=== PATIENT | male | born 1995 | race Two or more races ===

== ENCOUNTER 2020-05-05 14:25 | Inpatient (IN) | payer SELFPAY ==
[~2020-05-05] VITALS: Ht 177.8 cm; Wt 54.5 kg
--- NOTE | 2020-05-05 14:30 | NUR ---
REED WALTERS FROM [facility] FOR STEMI. PT USED COCAINE X3 DAYS AGO, AWOKE WITH CP THIS AM. TROP 10. ST ELEVATION IN V2-V6 ON EKG. [address], LABS DRAWING, HEPARIN DRIP IN PLACE FROM [place], 324 MG ASPIRIN GIVEN BY [place]. ATTEMPT TO LOAD REFRIGERATING ENGINEER AT THIS TIME.
[2020-05-05] MEDS ORDERED: HEPARIN 1,000 UNITS/ML, 10ML ONE (14:41)
[2020-05-05] MEDS ORDERED: MIDAZOLAM 1 MG/ML, 5ML ONE (14:41)
[2020-05-05] MEDS ORDERED: LIDOCAINE-MPF 1%, 5ML ONE (14:41)
[2020-05-05] MEDS ORDERED: FENTANYL PF 100 MCG/2ML ONE (14:41)
[2020-05-05] MEDS ORDERED: VERAPAMIL 2.5 MG/ML, 2ML ONE (14:41)
--- NOTE | 2020-05-05 14:47 | NUR ---
CODE CARDIAC PAGED AT 1423. DR. DAN PAGED AT 1423. PAGE RETURNED AT 1425. PT ARRIVED AT 1425. DR DAN AT BEDSIDE AT 1426. PT TO JIG BOX OPERATOR AT 1447.
[2020-05-05 14:48] LABS: BASOPHILS # (AUTO) 0.01 x10^3/uL (0-0.1); BASOPHILS % (AUTO) 0 % (0-1); EOSINOPHILS # (AUTO) 0.01 x10^3/uL (0-0.4); EOSINOPHILS % (AUTO) 0 % (1-7); LYMPHOCYTES # (AUTO) 1.33 x10^3/uL (1-3.4); LYMPHOCYTES % (AUTO) 16 % (22-44); MD NO; MEAN CORPUSCULAR HEMOGLOBIN 30.6 pg (27.5-34.5); MEAN CORPUSCULAR HGB CONC 34.2 g/dL (33.2-36.2); MEAN CORPUSCULAR VOLUME 89.5 fL (81-97); MEAN PLATELET VOLUME 9.4 fL (7.4-10.4); MONOCYTES % (AUTO) 16 % (2-9); NEUTROPHILS # (AUTO) 5.61 x10^3/uL (1.8-6.8); NEUTROPHILS % (AUTO) 68 % (42-75); PLATELET COUNT 174 x10^3/uL (130-400); RED BLOOD COUNT 5.15 x10^6/uL (4.38-5.82); RED CELL DISTRIBUTION WIDTH 13.6 % (9.4-14.8)
[2020-05-05 15:03] LABS: INTERNATIONAL NORMALIZED RATIO 1.05 (0.93-1.1); PROTHROMBIN TIME 11.1 Seconds (9.6-11.5)
--- NOTE | 2020-05-05 15:05 | NUR ---
SUPPLY TECH USED FOR CONSENT AND DISCUSSION OF STEMI FINDINGS AND PROCEDURE WITH DR AGUIRRE AND DR DAN. SUPPLY TECH VIA [employer], [place] NUMBER [id number].
[2020-05-05] MEDS ORDERED: POTASSIUM CHLORIDE 20 MEQ TAB.ER.PRT PO ONE ×2 (15:30→17:00)
[2020-05-05] MEDS ORDERED: SODIUM CHLORIDE 0.9% 1,000 ML IV SCH ×2 (15:46→16:39)
[2020-05-05] MEDS ORDERED: NITROGLYCERIN 0.4 MG/SPRAY SL PRN (16:00)
[2020-05-05] MEDS ORDERED: NITROGLYCERIN 0.4 MG BOTTLE (25 TABS) SL PRN ×2 (16:00→17:00)
[2020-05-05 16:25] VITALS: BP 107/72
[2020-05-05] MEDS ORDERED: hydrALAzine 20 MG/ML, 1ML IVPush PRN (17:00)
[2020-05-05] MEDS: NICOTINE 7 MG/24 HR PATCH.TD24 TD SCH (17:00)
[2020-05-05] MEDS ORDERED: ONDANSETRON 2MG/ML, 2ML IVPush PRN (17:00)
[2020-05-05] MEDS ORDERED: ACETAMINOPHEN 325 MG TABLET PO PRN (17:00)
[2020-05-05] MEDS ORDERED: LABETALOL 5MG/ML, 20ML IVPush PRN (17:00)
[2020-05-05] MEDS: HEPARIN 5,000 UNITS/ML, 1ML SQ SCH (17:44)
[2020-05-05] MEDS: CARVEDILOL 3.125 MG TABLET PO SCH (17:45)
[2020-05-05 18:11] LABS: BASOPHILS # (AUTO) 0.02 x10^3/uL (0-0.1); BASOPHILS % (AUTO) 0 % (0-1); EOSINOPHILS % (AUTO) 0 % (1-7); LYMPHOCYTES # (AUTO) 1.24 x10^3/uL (1-3.4); LYMPHOCYTES % (AUTO) 19 % (22-44); MD NO; MEAN CORPUSCULAR HEMOGLOBIN 30.6 pg (27.5-34.5); MEAN CORPUSCULAR HGB CONC 33.8 g/dL (33.2-36.2); MEAN CORPUSCULAR VOLUME 90.3 fL (81-97); MEAN PLATELET VOLUME 9.2 fL (7.4-10.4); MONOCYTES # (AUTO) 1.17 x10^3/uL (0.2-0.8); MONOCYTES % (AUTO) 18 % (2-9); NEUTROPHILS # (AUTO) 4.03 x10^3/uL (1.8-6.8); NEUTROPHILS % (AUTO) 62 % (42-75); PLATELET COUNT 164 x10^3/uL (130-400); RED CELL DISTRIBUTION WIDTH 13.5 % (9.4-14.8)
[2020-05-05 20:18] VITALS: BP 102/68
[2020-05-05] MEDS: CALCIUM CARBONATE 500 MG TABLET PO SCH (20:31)
[2020-05-05] MEDS: COLCHICINE 0.6 MG CAPSULE PO SCH (20:31)
[2020-05-05] MEDS: LISINOPRIL 5 MG TABLET PO SCH (21:00)
[2020-05-05 21:45] LABS: BARBITURATE SCREEN, URINE Negative (Negative); CANNABINOID SCREEN, URINE Positive (Negative); COCAINE SCREEN, URINE Negative (Negative); METHADONE SCREEN, URINE Negative (Negative); OPIATE SCREEN, URINE Negative (Negative)
[2020-05-05 21:46] LABS: AMPHETAMINE SCREEN, URINE Negative (Negative); BENZODIAZEPINE SCREEN, URINE Positive (Negative)
[2020-05-06 01:19] VITALS: BP 100/68
[2020-05-06] MEDS: HEPARIN 5,000 UNITS/ML, 1ML SQ SCH ×3 (01:43→17:24)
[2020-05-06 05:43] LABS: BASOPHILS # (AUTO) 0.02 x10^3/uL (0-0.1); BASOPHILS % (AUTO) 0 % (0-1); EOSINOPHILS # (AUTO) 0.04 x10^3/uL (0-0.4); EOSINOPHILS % (AUTO) 1 % (1-7); LYMPHOCYTES # (AUTO) 1.52 x10^3/uL (1-3.4); LYMPHOCYTES % (AUTO) 21 % (22-44); MD NO; MEAN CORPUSCULAR HEMOGLOBIN 30.7 pg (27.5-34.5); MEAN CORPUSCULAR VOLUME 90.2 fL (81-97); MEAN PLATELET VOLUME 9.4 fL (7.4-10.4); MONOCYTES # (AUTO) 1.42 x10^3/uL (0.2-0.8); MONOCYTES % (AUTO) 20 % (2-9); NEUTROPHILS # (AUTO) 4.27 x10^3/uL (1.8-6.8); NEUTROPHILS % (AUTO) 59 % (42-75); PLATELET COUNT 173 x10^3/uL (130-400); RED BLOOD COUNT 4.91 x10^6/uL (4.38-5.82); RED CELL DISTRIBUTION WIDTH 13.6 % (9.4-14.8)
[2020-05-06 05:52] LABS: ANION GAP 9 mmol/L (5-15); CALCIUM 8.3 mg/dL (8.5-10.1); CHLORIDE 107 mmol/L (98-107)
[2020-05-06 05:59] LABS: ALANINE AMINOTRANSFERASE 50 U/L (12-78); ALKALINE PHOSPHATASE 52 U/L (45-117); BILIRUBIN,TOTAL 0.7 mg/dL (0.2-1.0); CHOL/HDL RATIO 2.3; CHOLESTEROL, TOTAL 118 mg/dL (140-239); CREATININE 0.89 mg/dL (0.7-1.3); HDL CHOL % 44 % (26-37); HDL CHOLESTEROL (DIRECT) 52 mg/dL (40-60); LDL CHOLESTEROL,CALCULATED 51 mg/dL (54-169); TOTAL PROTEIN 6.6 g/dL (6.4-8.2); TRIGLYCERIDES 77 mg/dL (50-200); VLDL CHOLESTEROL 15 mg/dL (0-25)
[2020-05-06] MEDS: ASPIRIN 81 MG TABLET EC PO SCH (06:31)
[2020-05-06] MEDS: CARVEDILOL 3.125 MG TABLET PO SCH ×2 (06:35→17:24)
[2020-05-06 08:09] VITALS: BP 106/69
[2020-05-06] MEDS: COLCHICINE 0.6 MG CAPSULE PO SCH ×2 (08:11→20:46)
[2020-05-06] MEDS: LISINOPRIL 5 MG TABLET PO SCH ×2 (08:11→20:47)
[2020-05-06] MEDS: CALCIUM CARBONATE 500 MG TABLET PO SCH ×2 (08:11→20:46)
[2020-05-06] MEDS ORDERED: CLOPIDOGREL 75 MG TABLET PO SCH (09:00)
[2020-05-06 13:12] VITALS: BP 103/67
[2020-05-06] MEDS: NICOTINE 7 MG/24 HR PATCH.TD24 TD SCH (16:31)
[2020-05-06] MEDS ORDERED: POTASSIUM CHLORIDE 20 MEQ TAB.ER.PRT PO ONE (17:30)
[2020-05-06 20:40] VITALS: BP 107/62
[2020-05-07 01:58] VITALS: BP 111/69
[2020-05-07] MEDS: HEPARIN 5,000 UNITS/ML, 1ML SQ SCH ×2 (02:02→09:54)
[2020-05-07 05:28] VITALS: BP 100/61
[2020-05-07] MEDS: ASPIRIN 81 MG TABLET EC PO SCH (05:29)
[2020-05-07] MEDS: CARVEDILOL 3.125 MG TABLET PO SCH (05:29)
[2020-05-07 08:57] VITALS: BP 102/59
[2020-05-07] MEDS: LISINOPRIL 5 MG TABLET PO SCH (09:00)
[2020-05-07 09:50] VITALS: BP 97/63
[2020-05-07] MEDS: COLCHICINE 0.6 MG CAPSULE PO SCH (09:54)
[2020-05-07] MEDS ORDERED: ASPI81TA45 PO (12:19)
[2020-05-07] MEDS ORDERED: LISI5TAB7 PO (12:19)
[2020-05-07] MEDS ORDERED: CARV3.1212 PO (12:19)
[2020-05-07] MEDS ORDERED: COLC0.6C3 PO (12:25)
[2020-05-07 13:03] VITALS: BP 106/64
== END 2020-05-07 15:15 | disposition home or self-care (01) | DRG 280 ==
LOC: ED 14:41 → EDIP 15:06 → 5SO 15:38 → DCLOUNGE 05-07 15:11
PROVIDERS: ADMIT Internal Medicine Cardiovascular Disease; ATTEND Internal Medicine Cardiovascular Disease
PROC: 4A023N7 Measurement of Cardiac Sampling and Pressure, Left Heart, Percutaneous Approach (ICD-10-PCS; principal; 2020-05-05)
PROC: B2151ZZ Fluoroscopy of Left Heart using Low Osmolar Contrast (ICD-10-PCS; 2020-05-05)
PROC: B2111ZZ Fluoroscopy of Multiple Coronary Arteries using Low Osmolar Contrast (ICD-10-PCS; 2020-05-05)
PROC: B41F1ZZ Fluoroscopy of Right Lower Extremity Arteries using Low Osmolar Contrast (ICD-10-PCS; 2020-05-05)
DX: I21.09 ST elevation (STEMI) myocardial infarction involving other coronary artery of anterior wall (principal); I50.31 Acute diastolic (congestive) heart failure; I42.9 Cardiomyopathy, unspecified; E83.51 Hypocalcemia; E87.6 Hypokalemia; F17.210 Nicotine dependence, cigarettes, uncomplicated; I25.10 Atherosclerotic heart disease of native coronary artery without angina pectoris; I95.9 Hypotension, unspecified; R73.9 Hyperglycemia, unspecified; F14.10 Cocaine abuse, uncomplicated; F12.90 Cannabis use, unspecified, uncomplicated
CPT/HCPCS: 36415; 71045; 80047; 80053; 80061; 80307; 83036; 83735; 84443; 84484; 85025; 85610; 93005; 93306; 93458; 99156; C1760; C1769; C1894; G0378; J1644; J2250; J3010; J7030; Q9967